=== PATIENT | female | born 1980 | race Two or more races ===

== ENCOUNTER 2017-05-30 06:37 | Emergency (ER) | payer SELFPAY ==
[~2017-05-30] VITALS: Ht 154.9 cm; Wt 67.1 kg
[2017-05-30 07:18] VITALS: BP 127/82
[2017-05-30] MEDS ORDERED: EPINEPHrine HCL 1 MG/1 ML AMP SC ONE (08:00)
[2017-05-30] MEDS ORDERED: methylPREDNISolone SOD SUCC 125 MG/2 ML VL IM ONE (08:00)
[2017-05-30] MEDS ORDERED: diphenhdrAMINE HCL 50 MG/1 ML VL IM ONE (08:00)
== END 2017-05-30 08:34 | disposition home or self-care (01) ==
LOC: ER 06:37
DX: L50.9 Urticaria, unspecified (principal)
CPT/HCPCS: 96372; 99284; J0171; J1200; J2930

== ENCOUNTER 2017-11-02 16:33 | Emergency (ER) | payer MEDICAID, OTHER ==
[~2017-11-02] VITALS: Ht 162.6 cm; Wt 66.7 kg
[2017-11-02 17:29] LABS: Urine Bacteria NONE SEEN /hpf (None Seen); Urine Blood 1+ /uL (Negative); Urine Mucus FEW (None Seen); Urine WBC 4 /hpf (0 - 5)
[2017-11-02 19:05] VITALS: BP 135/78
== END 2017-11-02 20:04 | disposition home or self-care (01) ==
LOC: ER 16:43
DX: R51 Headache (principal); M62.838 Other muscle spasm; V49.9XXA Car occupant (driver) (passenger) injured in unspecified traffic accident, initial encounter; Y93.89 Activity, other specified; Y92.89 Other specified places as the place of occurrence of the external cause; Y99.8 Other external cause status
CPT/HCPCS: 70450; 81001; 81025; 93005

== ENCOUNTER 2018-04-05 01:46 | Emergency (ER) | payer MEDICAID ==
[~2018-04-05] VITALS: Ht 152.4 cm; Wt 65.8 kg
[2018-04-05 01:53] VITALS: BP 148/62
== END 2018-04-05 05:39 | disposition left against medical advice (07) ==
LOC: EDBD 01:46 → ER 01:51
DX: R51 Headache (principal); Z53.21 Procedure and treatment not carried out due to patient leaving prior to being seen by health care provider
CPT/HCPCS: 70450

== ENCOUNTER 2018-06-29 23:42 | Emergency (ER) | payer MEDICAID ==
[~2018-06-29] VITALS: Ht 154.9 cm; Wt 68.0 kg
[2018-06-30] MEDS ORDERED: HYDROcodone-ACET 10/325MG TAB PO ONE (05:45)
[2018-06-30 07:30] VITALS: BP 114/76
== END 2018-06-30 08:14 | disposition home or self-care (01) ==
LOC: ER 23:46
DX: S22.089A Unspecified fracture of T11-T12 vertebra, initial encounter for closed fracture (principal); S22.31XA Fracture of one rib, right side, initial encounter for closed fracture; Z98.51 Tubal ligation status; W51.XXXA Accidental striking against or bumped into by another person, initial encounter; Y93.89 Activity, other specified; Y92.89 Other specified places as the place of occurrence of the external cause; Y99.8 Other external cause status
CPT/HCPCS: 71250; 72125; 72131

== ENCOUNTER 2018-07-12 02:33 | Emergency (ER) | payer MEDICAID ==
[~2018-07-12] VITALS: Ht 154.9 cm; Wt 68.0 kg
[2018-07-12 02:43] VITALS: BP 150/98
[2018-07-12] MEDS: methylPREDNISolone SOD SUCC 125 MG/2 ML VL IM ONE (05:07)
[2018-07-12] MEDS: KETOROLAC TROMETH 60MG/2ML VIAL IM ONE (05:09)
== END 2018-07-12 05:45 | disposition home or self-care (01) ==
LOC: ER 02:35
DX: S22.31XA Fracture of one rib, right side, initial encounter for closed fracture (principal); M25.531 Pain in right wrist; Z98.51 Tubal ligation status; X58.XXXA Exposure to other specified factors, initial encounter; Y93.89 Activity, other specified; Y92.89 Other specified places as the place of occurrence of the external cause; Y99.8 Other external cause status
CPT/HCPCS: 71101; 96372; 99283; J1885; J2930

== ENCOUNTER 2019-07-11 02:14 | Emergency (ER) | payer MEDICAID ==
[~2019-07-11] VITALS: Ht 154.9 cm; Wt 71.2 kg
[2019-07-11 02:40] LABS: Basophils # (auto) 0.1 uL; Eosinophils # (auto) 0.1 uL; Eosinophils % (auto) 1.9 % (0.0-7.0); Hematocrit 35.1 % (36.0-46.0); Hemoglobin 11.5 g/dL (12.2-16.2); Lymphocytes # (auto) 2.2 uL; Lymphocytes % (auto) 37.2 % (10.0-50.0); Mean Corpuscular Hemoglobin 26.8 pg (28.0-32.0); Mean Corpuscular Hgb Conc. 32.6 g/dL (32.0-36.0); Mean Corpuscular Volume 82.2 fL (80.0-100.0); Monocytes # (auto) 0.4 uL; Monocytes % (auto) 7.6 % (0.0-12.0); Neutrophils # (auto) 3.1 uL; Neutrophils % (auto) 52.3 % (37.0-80.0); Nucleated Red Blood Cells % 0.1 %; Platelet Count (auto) 341 10^3/uL (140-450); Red Blood Cells 4.27 10^6/uL (4.0-5.20); Red Cell Distribution Width 15.5 % (11.8-14.3); White Blood Cell 5.8 10^3/uL (4.4-10.8)
[2019-07-11 02:59] LABS: Alanine Aminotransferase 22 U/L (13-56); Albumin 3.3 g/dL (3.4-5.0); Anion Gap 6 (5-15); Aspartate Aminotransferase 13 U/L (15-37); BUN/Creatinine Ratio 15.4; Blood Urea Nitrogen 10 mg/dL (7-18); Calcium 8.4 mg/dL (8.5-10.1); Carbon Dioxide 26 mmol/L (21-32); Chloride 105 mmol/L (98-107); GFR African American 130 mL/min; GFR Non-African American 107 mL/min; Glucose 101 mg/dL (74-106); Potassium 3.7 mmol/L (3.5-5.1); Sodium 137 mmol/L (136-145)
[2019-07-11 03:04] LABS: Alkaline Phosphatase 67 U/L (45-117); Bilirubin, Total 0.6 mg/dL (0.2-1.0); Total Protein 7.7 g/dL (6.4-8.2)
[2019-07-11] MEDS ORDERED: ASPirin 81 mg TAB PO ONE (07:00)
[2019-07-11 10:08] LABS: Urine Bacteria NONE SEEN /hpf (None Seen); Urine Blood Negative /uL (Negative); Urine Mucus FEW (None Seen); Urine Specific Gravity 1.009 (1.001-1.035); Urine WBC 4 /hpf (0 - 5)
[2019-07-11 10:10] VITALS: BP 128/77
== END 2019-07-11 11:36 | disposition home or self-care (01) ==
LOC: ER 02:15
DX: R07.89 Other chest pain (principal); F41.9 Anxiety disorder, unspecified; R42 Dizziness and giddiness; I10 Essential (primary) hypertension; Z98.51 Tubal ligation status
CPT/HCPCS: 36415; 80053; 81001; 84484; 85025; 93005

== ENCOUNTER 2020-11-27 15:30 | Emergency (ER) | payer MEDICAID ==
[~2020-11-27] VITALS: Ht 154.9 cm; Wt 67.6 kg
[2020-11-27 15:41] VITALS: BP 127/80
== END 2020-11-27 18:21 | disposition home or self-care (01) ==
LOC: ER 15:30
DX: S54.02XA Injury of ulnar nerve at forearm level, left arm, initial encounter (principal); I10 Essential (primary) hypertension; X58.XXXA Exposure to other specified factors, initial encounter; Y93.89 Activity, other specified; Y92.89 Other specified places as the place of occurrence of the external cause; Y99.8 Other external cause status